=== PATIENT | female | born 1940 | race Two or more races ===

== ENCOUNTER 2017-11-30 22:53 | Inpatient (IN) | payer MEDICARE, OTHER ==
[2017-11-30 23:17] LABS: ABNORMAL IP MESSAGE 1; HEMATOCRIT 36.5 % (37.0-47.0); HEMOGLOBIN 11.5 g/dl (12.0-16.0); MEAN CORPUSCULAR HEMOGLOBIN 27.7 pg (29.0-33.0); MEAN CORPUSCULAR HGB CONC 31.5 g/dl (32.0-37.0); PLATELET COUNT 91 10^3/UL (140-415); RED BLOOD COUNT 4.15 10^6/ul (4.20-5.40); RED CELL DISTRIBUTION WIDTH 13.5 % (11.5-14.5)
[2017-11-30 23:17] LABS: WHITE BLOOD COUNT 9.6 10^3/ul (4.8-10.8)
[2017-11-30 23:20] LABS: POSITIVE DIFF @See below
[2017-11-30 23:21] LABS: ADD MAN DIFF? YES
[2017-11-30] MEDS: FUROSEMIDE 40 MG INJ IV (23:28)
[2017-11-30 23:34] LABS: ALANINE AMINOTRANSFERASE 77 IU/L (13-69); ALBUMIN 4.8 g/dl (3.3-4.9); ALBUMIN/GLOBULIN RATIO 1.41; ALKALINE PHOSPHATASE 93 IU/L (42-121); ANION GAP 20 (8-16); ASPARTATE AMINO TRANSFERASE 78 IU/L (15-46); BILIRUBIN,INDIRECT 0.2 mg/dl (0-1.1); BILIRUBIN,TOTAL 0.2 mg/dl (0.2-1.3); BLOOD UREA NITROGEN 20 mg/dl (7-20); CARBON DIOXIDE 18 mmol/L (21-31); CHLORIDE 99 mmol/L (97-110); CREATININE 1.61 mg/dl (0.44-1.00); GLUCOSE 240 mg/dl (70-220); POTASSIUM 5.2 mmol/L (3.5-5.1); SODIUM 132 mmol/L (135-144); TOTAL PROTEIN 8.2 g/dl (6.1-8.1)
[2017-11-30 23:35] LABS: INR 0.89; PROTIME 12.1 Sec (11.9-14.9); PT RATIO 0.9
[2017-11-30 23:36] LABS: PARTIAL THROMBOPLASTIN TIME 25.5 Sec (25.0-35.0)
[2017-11-30 23:45] LABS: B-TYPE NATRIURETIC PEPTIDE 1360 PG/ML (0-450)
[2017-11-30 23:50] LABS: BASOPHILS % 0.2 % (0.0-2.0); LYMPHOCYTES # 4.6 10^3/ul (0.8-2.9); LYMPHOCYTES % 48.4 % (15.0-51.0); MONOCYTE # 0.9 10^3/ul (0.3-0.9); MONOCYTES % 9.3 % (0.0-11.0); NEUTROPHILS % 41.3 % (39.0-77.0)
[2017-11-30 23:59] LABS: TROPONIN-I < 0.012 ng/ml (0.000-0.120)
[2017-12-01 00:35] LABS: AADO2 Arterial 446.8 mmHg (7.0-24.0); Allen Test ACCEPTAB; Arterial Base Excess -6.2 mmol/L (-3.0-3); Arterial Blood Gas Oxygen Sat 99.2 mmHG (95.0-100.0); Arterial COHb 0.3 % (0.0-3.0); Arterial Fraction of Oxyhgb 98.8 % (93.0-99.0); Arterial HCO3 18.7 mmol/L (22.0-26.0); Arterial MetHb 0.1 % (0.0-1.5); Arterial Total Hemglobin 11.3 g/dl (12.0-18.0); Arterial pCO2 34.8 mmhg (35-45); Blood Gas IEPAP 18/5; Blood Gas PS 13; MODE MASK - BIPAP; Site Right Radial
[2017-12-01] MEDS ORDERED: morphine 2 MG INJ IV (01:00)
[2017-12-01] MEDS ORDERED: NACL 0.9% 3 ML SYG IV (01:00)
[2017-12-01] MEDS ORDERED: NITROGLYCERIN (SL) 0.4 MG TAB SL (01:00)
[2017-12-01] MEDS: FUROSEMIDE 20 MG INJ IV (06:21)
[2017-12-01] MEDS: PANTOPRAZOLE (EC) 40 MG TAB PO (06:21)
[2017-12-01 07:13] LABS: ADD MAN DIFF? NO
[2017-12-01 07:14] LABS: WHITE BLOOD COUNT 5.8 10^3/ul (4.8-10.8)
[2017-12-01 07:14] LABS: ABNORMAL IP MESSAGE 1; HEMATOCRIT 29.1 % (37.0-47.0); HEMOGLOBIN 9.6 g/dl (12.0-16.0); LYMPHOCYTES # 0.9 10^3/ul (0.8-2.9); LYMPHOCYTES % 15.4 % (15.0-51.0); MEAN CORPUSCULAR HEMOGLOBIN 28.2 pg (29.0-33.0); MEAN CORPUSCULAR VOLUME 85.3 fl (82.0-101.0); MONOCYTE # 0.5 10^3/ul (0.3-0.9); MONOCYTES % 8.3 % (0.0-11.0); NEUTROPHIL # 4.3 10^3/ul (1.6-7.5); NEUTROPHILS % 75.3 % (39.0-77.0); RED BLOOD COUNT 3.41 10^6/ul (4.20-5.40); RED CELL DISTRIBUTION WIDTH 13.5 % (11.5-14.5)
[2017-12-01 07:22] LABS: PLATELET COUNT 52 10^3/UL (140-415); POSITIVE DIFF @See below
[2017-12-01 07:36] LABS: CHOL/HDL RATIO 3.7 RATIO; HDL CHOLESTEROL 44 mg/dl (33-92); LDL CHOLESTEROL,CALCULATED 98 mg/dl; TRIGLYCERIDES 104 mg/dl (0-149)
[2017-12-01 07:36] LABS: CHOLESTEROL 163 mg/dl (100-200)
[2017-12-01 07:40] LABS: CREATINE KINASE 70 IU/L (23-200)
[2017-12-01 07:43] LABS: ANION GAP 13 (8-16); BLOOD UREA NITROGEN 23 mg/dl (7-20); CALCIUM 8.6 mg/dl (8.4-10.2); CARBON DIOXIDE 23 mmol/L (21-31); CHLORIDE 100 mmol/L (97-110); CREATININE 1.38 mg/dl (0.44-1.00); GLUCOSE 94 mg/dl (70-220); MAGNESIUM 1.9 mg/dl (1.7-2.5); PHOSPHORUS 3.8 mg/dl (2.5-4.9); SODIUM 131 mmol/L (135-144)
[2017-12-01 07:48] LABS: CK INDEX 1.5; CK-MB 1.03 ng/ml (0.0-2.4); TROPONIN-I 0.015 ng/ml (0.000-0.120)
[2017-12-01] MEDS ORDERED: SPIRONOLACTONE 25 MG TAB PO (09:00)
[2017-12-01] MEDS ORDERED: FUROSEMIDE 20 MG TAB PO (09:00)
[2017-12-01] MEDS: ASPIRIN 81 MG TAB PO (09:38)
[2017-12-01] MEDS: LISINOPRIL 10 MG TAB PO ×2 (09:38→21:07)
[2017-12-01] MEDS: SENNA TAB PO (09:38)
[2017-12-01] MEDS: AMIODARONE 200 MG TAB PO (09:39)
[2017-12-01] MEDS: HEPARIN 5,000 UNIT/0.5 ML VIAL SC ×2 (09:53→21:10)
[2017-12-01 11:32] LABS: IRON 57 ug/dl (35-150)
[2017-12-01 11:41] LABS: % IRON SATURATION 17 % SAT (22-52); TOTAL IRON BINDING CAPACITY 333 ug/dl (241-421)
[2017-12-01 12:52] LABS: CREATINE KINASE 64 IU/L (23-200)
[2017-12-01 12:58] LABS: CK INDEX 1.3; CK-MB 0.84 ng/ml (0.0-2.4)
[2017-12-01 12:59] LABS: TROPONIN-I < 0.012 ng/ml (0.000-0.120)
[2017-12-01 13:57] LABS: ADD UMIC NO; UR ASCORBIC ACID NEGATIVE (NEGATIVE); UR BILIRUBIN (Dip) NEGATIVE (NEGATIVE); UR BLOOD (Dip) NEGATIVE (NEGATIVE); UR CLARITY CLEAR (CLEAR); UR COLOR STRAW (YELLOW); UR GLUCOSE (Dip) NEGATIVE (NEGATIVE); UR KETONES (Dip) NEGATIVE (NEGATIVE); UR LEUKOCYTE ESTERASE (Dip) NEGATIVE Leu/ul (NEGATIVE); UR NITRITE (Dip) NEGATIVE (NEGATIVE); UR SPECIFIC GRAVITY (Dip) 1.004 (1.003-1.030); UR TOTAL PROTEIN (Dip) NEGATIVE (NEGATIVE); UR UROBILINOGEN (Dip) NEGATIVE (NEGATIVE)
[2017-12-01 14:03] LABS: CREATININE,URINE RANDOM 28.94 mg/dl (20-320)
[2017-12-01 14:03] LABS: SODIUM,URINE RANDOM 63 mmol/L (30-90)
[2017-12-01] MEDS: FUROSEMIDE 40 MG INJ IV (18:40)
[2017-12-01] MEDS: ATORVASTATIN 40 MG TAB PO (21:06)
[2017-12-01] MEDS: PRIMIDONE 50 MG TAB PO (21:31)
[2017-12-02] MEDS: FUROSEMIDE 40 MG INJ IV ×2 (05:48→17:34)
[2017-12-02] MEDS: PANTOPRAZOLE (EC) 40 MG TAB PO (06:17)
[2017-12-02 07:37] LABS: ADD MAN DIFF? NO
[2017-12-02 07:41] LABS: ABNORMAL IP MESSAGE 1; HEMATOCRIT 29.6 % (37.0-47.0); HEMOGLOBIN 9.6 g/dl (12.0-16.0); LYMPHOCYTES # 1.1 10^3/ul (0.8-2.9); LYMPHOCYTES % 22.6 % (15.0-51.0); MEAN CORPUSCULAR HEMOGLOBIN 27.9 pg (29.0-33.0); MEAN CORPUSCULAR HGB CONC 32.4 g/dl (32.0-37.0); MEAN PLATELET VOLUME 14.7 fl (7.4-10.4); MONOCYTE # 0.5 10^3/ul (0.3-0.9); MONOCYTES % 10.3 % (0.0-11.0); NEUTROPHIL # 3.3 10^3/ul (1.6-7.5); NEUTROPHILS % 66.3 % (39.0-77.0); PLATELET COUNT 58 10^3/UL (140-415); RED BLOOD COUNT 3.44 10^6/ul (4.20-5.40); RED CELL DISTRIBUTION WIDTH 13.8 % (11.5-14.5)
[2017-12-02 07:42] LABS: POSITIVE DIFF @See below
[2017-12-02 08:11] LABS: PHOSPHORUS 3.2 mg/dl (2.5-4.9)
[2017-12-02 08:47] LABS: ALANINE AMINOTRANSFERASE 52 IU/L (13-69); ALBUMIN 3.9 g/dl (3.3-4.9); ALKALINE PHOSPHATASE 61 IU/L (42-121); ANION GAP 15 (8-16); ASPARTATE AMINO TRANSFERASE 35 IU/L (15-46); BILIRUBIN,INDIRECT 0.3 mg/dl (0-1.1); BILIRUBIN,TOTAL 0.3 mg/dl (0.2-1.3); BLOOD UREA NITROGEN 22 mg/dl (7-20); CALCIUM 9.1 mg/dl (8.4-10.2); CARBON DIOXIDE 25 mmol/L (21-31); CHLORIDE 100 mmol/L (97-110); CREATININE 1.47 mg/dl (0.44-1.00); GLUCOSE 85 mg/dl (70-220); POTASSIUM 4.8 mmol/L (3.5-5.1); SODIUM 135 mmol/L (135-144); TOTAL PROTEIN 6.9 g/dl (6.1-8.1)
[2017-12-02] MEDS: SENNA TAB PO (08:54)
[2017-12-02] MEDS: AMIODARONE 200 MG TAB PO (08:54)
[2017-12-02] MEDS: LISINOPRIL 10 MG TAB PO ×2 (08:55→20:32)
[2017-12-02] MEDS: ASPIRIN 81 MG TAB PO (08:55)
[2017-12-02] MEDS: HEPARIN 5,000 UNIT/0.5 ML VIAL SC ×2 (08:56→20:33)
[2017-12-02 15:01] LABS: CREATININE, RANDOM URINE 35 mg/dL (20-320); MICROALBUMIN <0.2 mg/dL; MICROALBUMIN/CREATININE RATIO NOTE (<30)
[2017-12-02] MEDS: morphine LIQ (10 MG/5 ML) CUP PO ×2 (17:48→21:26)
[2017-12-02] MEDS: ACETAMINOPHEN 325 MG TAB PO (19:45)
[2017-12-02] MEDS: ATORVASTATIN 40 MG TAB PO (20:31)
[2017-12-02] MEDS: PRIMIDONE 50 MG TAB PO (20:31)
[2017-12-02] MEDS: AL HYDROX/MG HYDROX/SIMETH 30 ML CUP PO (23:17)
[2017-12-03] MEDS: FUROSEMIDE 40 MG INJ IV (06:42)
[2017-12-03 07:13] LABS: ADD MAN DIFF? NO
[2017-12-03 07:19] LABS: WHITE BLOOD COUNT 4.8 10^3/ul (4.8-10.8)
[2017-12-03 07:19] LABS: ABNORMAL IP MESSAGE 1; HEMATOCRIT 29.1 % (37.0-47.0); HEMOGLOBIN 9.5 g/dl (12.0-16.0); LYMPHOCYTES % 20.1 % (15.0-51.0); MEAN CORPUSCULAR HGB CONC 32.6 g/dl (32.0-37.0); MEAN CORPUSCULAR VOLUME 85.8 fl (82.0-101.0); MONOCYTE # 0.5 10^3/ul (0.3-0.9); MONOCYTES % 10.3 % (0.0-11.0); NEUTROPHIL # 3.3 10^3/ul (1.6-7.5); NEUTROPHILS % 68.8 % (39.0-77.0); RED BLOOD COUNT 3.39 10^6/ul (4.20-5.40); RED CELL DISTRIBUTION WIDTH 13.9 % (11.5-14.5)
[2017-12-03] MEDS: PANTOPRAZOLE (EC) 40 MG TAB PO (07:30)
[2017-12-03 07:35] LABS: PLATELET COUNT 61 10^3/UL (140-415); POSITIVE DIFF @See below
[2017-12-03 07:55] LABS: ANION GAP 18 (8-16); BLOOD UREA NITROGEN 28 mg/dl (7-20); CALCIUM 9.1 mg/dl (8.4-10.2); CARBON DIOXIDE 26 mmol/L (21-31); CHLORIDE 94 mmol/L (97-110); CREATININE 1.74 mg/dl (0.44-1.00); GLUCOSE 93 mg/dl (70-220); MAGNESIUM 2.1 mg/dl (1.7-2.5); PHOSPHORUS 3.8 mg/dl (2.5-4.9); POTASSIUM 4.9 mmol/L (3.5-5.1); SODIUM 133 mmol/L (135-144)
[2017-12-03] MEDS: SENNA TAB PO (09:12)
[2017-12-03] MEDS: HEPARIN 5,000 UNIT/0.5 ML VIAL SC ×2 (09:12→20:28)
[2017-12-03] MEDS: ACETAMINOPHEN 325 MG TAB PO (09:12)
[2017-12-03] MEDS: ASPIRIN 81 MG TAB PO (09:12)
[2017-12-03] MEDS: LISINOPRIL 10 MG TAB PO ×2 (09:12→20:30)
[2017-12-03] MEDS: METOLAZONE 5 MG TAB PO (09:13)
[2017-12-03] MEDS: AMIODARONE 200 MG TAB PO (09:13)
[2017-12-03] MEDS: ONDANSETRON 4 MG INJ IV (09:21)
[2017-12-03] MEDS: ALBUTEROL/IPRATROPIUM (NEB) 3 ML AMP HHN ×2 (13:14→19:30)
[2017-12-03] MEDS: BUDESONIDE (NEB) 0.5MG/2ML AMP HHN ×2 (13:38→19:30)
[2017-12-03] MEDS: FUROSEMIDE 20 MG INJ IV (17:49)
[2017-12-03] MEDS: ATORVASTATIN 40 MG TAB PO (20:29)
[2017-12-03] MEDS: PRIMIDONE 50 MG TAB PO (20:29)
[2017-12-04] MEDS: FUROSEMIDE 20 MG INJ IV (05:56)
[2017-12-04] MEDS: HYDROCODONE/APAP (5/325) TAB PO ×2 (05:56→20:55)
[2017-12-04] MEDS: AL HYDROX/MG HYDROX/SIMETH 30 ML CUP PO (05:59)
[2017-12-04 07:03] LABS: ADD MAN DIFF? NO
[2017-12-04 07:20] LABS: ABNORMAL IP MESSAGE 1; BASOPHILS % 0.2 % (0.0-2.0); HEMOGLOBIN 9.4 g/dl (12.0-16.0); LYMPHOCYTES # 1.6 10^3/ul (0.8-2.9); LYMPHOCYTES % 33.4 % (15.0-51.0); MEAN CORPUSCULAR HEMOGLOBIN 27.7 pg (29.0-33.0); MEAN CORPUSCULAR HGB CONC 32.4 g/dl (32.0-37.0); MEAN CORPUSCULAR VOLUME 85.5 fl (82.0-101.0); MEAN PLATELET VOLUME 13.6 fl (7.4-10.4); MONOCYTE # 0.6 10^3/ul (0.3-0.9); MONOCYTES % 12.7 % (0.0-11.0); NEUTROPHIL # 2.5 10^3/ul (1.6-7.5); NEUTROPHILS % 53.1 % (39.0-77.0); PLATELET COUNT 62 10^3/UL (140-415); RED BLOOD COUNT 3.39 10^6/ul (4.20-5.40); RED CELL DISTRIBUTION WIDTH 13.9 % (11.5-14.5)
[2017-12-04 07:20] LABS: WHITE BLOOD COUNT 4.8 10^3/ul (4.8-10.8)
[2017-12-04 07:28] LABS: POSITIVE DIFF @See below
[2017-12-04] MEDS: PANTOPRAZOLE (EC) 40 MG TAB PO (07:53)
[2017-12-04 07:56] LABS: ANION GAP 22 (8-16); BLOOD UREA NITROGEN 35 mg/dl (7-20); CARBON DIOXIDE 24 mmol/L (21-31); CHLORIDE 90 mmol/L (97-110); CREATININE 2.22 mg/dl (0.44-1.00); GLUCOSE 89 mg/dl (70-220); MAGNESIUM 2.1 mg/dl (1.7-2.5); PHOSPHORUS 4.7 mg/dl (2.5-4.9); POTASSIUM 4.8 mmol/L (3.5-5.1); SODIUM 131 mmol/L (135-144)
[2017-12-04] MEDS: ALBUTEROL/IPRATROPIUM (NEB) 3 ML AMP HHN ×3 (08:00→21:21)
[2017-12-04] MEDS: ASPIRIN 81 MG TAB PO (08:49)
[2017-12-04] MEDS: SENNA TAB PO (08:49)
[2017-12-04] MEDS: LISINOPRIL 10 MG TAB PO ×2 (08:51→20:55)
[2017-12-04] MEDS: METOLAZONE 5 MG TAB PO (08:52)
[2017-12-04] MEDS: AMIODARONE 200 MG TAB PO (08:52)
[2017-12-04] MEDS: HEPARIN 5,000 UNIT/0.5 ML VIAL SC ×2 (08:58→20:58)
[2017-12-04] MEDS: BUDESONIDE (NEB) 0.5MG/2ML AMP HHN ×2 (09:00→21:24)
[2017-12-04] MEDS: PRIMIDONE 50 MG TAB PO (20:55)
[2017-12-04] MEDS: ATORVASTATIN 40 MG TAB PO (20:55)
[2017-12-05] MEDS: PANTOPRAZOLE (EC) 40 MG TAB PO (05:04)
[2017-12-05 06:50] LABS: ADD MAN DIFF? NO
[2017-12-05 06:52] LABS: WHITE BLOOD COUNT 4.3 10^3/ul (4.8-10.8)
[2017-12-05 06:52] LABS: ABNORMAL IP MESSAGE 1; HEMOGLOBIN 10.1 g/dl (12.0-16.0); LYMPHOCYTES % 22.7 % (15.0-51.0); MEAN CORPUSCULAR HEMOGLOBIN 28.3 pg (29.0-33.0); MEAN CORPUSCULAR HGB CONC 33.7 g/dl (32.0-37.0); MEAN PLATELET VOLUME 13.5 fl (7.4-10.4); MONOCYTE # 0.5 10^3/ul (0.3-0.9); MONOCYTES % 11.9 % (0.0-11.0); NEUTROPHIL # 2.8 10^3/ul (1.6-7.5); NEUTROPHILS % 64.7 % (39.0-77.0); PLATELET COUNT 69 10^3/UL (140-415); RED BLOOD COUNT 3.57 10^6/ul (4.20-5.40); RED CELL DISTRIBUTION WIDTH 13.7 % (11.5-14.5)
[2017-12-05 07:16] LABS: POSITIVE DIFF @See below
[2017-12-05 07:30] LABS: ANION GAP 19 (8-16); BLOOD UREA NITROGEN 31 mg/dl (7-20); CALCIUM 9.5 mg/dl (8.4-10.2); CARBON DIOXIDE 23 mmol/L (21-31); CHLORIDE 95 mmol/L (97-110); CREATININE 1.74 mg/dl (0.44-1.00); GLUCOSE 98 mg/dl (70-220); POTASSIUM 4.8 mmol/L (3.5-5.1); SODIUM 132 mmol/L (135-144)
[2017-12-05] MEDS: ALBUTEROL/IPRATROPIUM (NEB) 3 ML AMP HHN ×3 (08:00→20:17)
[2017-12-05] MEDS: BUDESONIDE (NEB) 0.5MG/2ML AMP HHN ×2 (08:20→20:17)
[2017-12-05] MEDS: AMIODARONE 200 MG TAB PO (08:26)
[2017-12-05] MEDS: LISINOPRIL 10 MG TAB PO ×2 (08:26→20:45)
[2017-12-05] MEDS: METOLAZONE 5 MG TAB PO (08:26)
[2017-12-05] MEDS: FUROSEMIDE 20 MG INJ IV (08:27)
[2017-12-05] MEDS: ASPIRIN 81 MG TAB PO (08:27)
[2017-12-05] MEDS: SENNA TAB PO (08:28)
[2017-12-05] MEDS: HEPARIN 5,000 UNIT/0.5 ML VIAL SC ×2 (08:28→20:45)
[2017-12-05] MEDS: LORAZEPAM 1 MG TAB PO ×2 (10:04→20:45)
[2017-12-05] MEDS: ATORVASTATIN 40 MG TAB PO (20:44)
[2017-12-05] MEDS: PRIMIDONE 50 MG TAB PO (20:44)
[2017-12-05] MEDS: ZOLPIDEM 5 MG TAB PO (20:45)
[2017-12-06] MEDS: PANTOPRAZOLE (EC) 40 MG TAB PO (06:28)
[2017-12-06] MEDS: BUDESONIDE (NEB) 0.5MG/2ML AMP HHN ×2 (08:01→20:17)
[2017-12-06] MEDS: ALBUTEROL/IPRATROPIUM (NEB) 3 ML AMP HHN ×3 (08:01→20:03)
[2017-12-06] MEDS: ASPIRIN 81 MG TAB PO (08:41)
[2017-12-06] MEDS: METOLAZONE 5 MG TAB PO (08:42)
[2017-12-06] MEDS: SENNA TAB PO (08:42)
[2017-12-06] MEDS: AMIODARONE 200 MG TAB PO (08:42)
[2017-12-06] MEDS: HEPARIN 5,000 UNIT/0.5 ML VIAL SC ×2 (08:45→21:22)
[2017-12-06] MEDS: FUROSEMIDE 20 MG TAB PO (08:52)
[2017-12-06 09:42] LABS: ANION GAP 18 (8-16); BLOOD UREA NITROGEN 37 mg/dl (7-20); CALCIUM 9.5 mg/dl (8.4-10.2); CARBON DIOXIDE 26 mmol/L (21-31); CHLORIDE 92 mmol/L (97-110); CREATININE 2.89 mg/dl (0.44-1.00); GLUCOSE 100 mg/dl (70-220); SODIUM 131 mmol/L (135-144)
[2017-12-06 09:49] LABS: POTASSIUM 5.2 mmol/L (3.5-5.1)
[2017-12-06] MEDS: SOD CHLORIDE 0.9% 1,000 ML IV (11:00)
[2017-12-06] MEDS: ATORVASTATIN 40 MG TAB PO (21:12)
[2017-12-06] MEDS: PRIMIDONE 50 MG TAB PO (21:17)
[2017-12-06] MEDS: LORAZEPAM 1 MG TAB PO (21:22)
[2017-12-06] MEDS ORDERED: hydrALAzine 20 MG INJ IV (22:00)
[2017-12-07] MEDS: SOD CHLORIDE 0.9% 1,000 ML IV ×2 (07:00→19:12)
[2017-12-07 07:17] LABS: ADD MAN DIFF? NO
[2017-12-07 07:32] LABS: ABNORMAL IP MESSAGE 1; BASOPHILS % 0.2 % (0.0-2.0); HEMATOCRIT 29.3 % (37.0-47.0); HEMOGLOBIN 9.6 g/dl (12.0-16.0); LYMPHOCYTES % 20.7 % (15.0-51.0); MEAN CORPUSCULAR HGB CONC 32.8 g/dl (32.0-37.0); MEAN CORPUSCULAR VOLUME 85.4 fl (82.0-101.0); MEAN PLATELET VOLUME 13.4 fl (7.4-10.4); MONOCYTE # 0.6 10^3/ul (0.3-0.9); MONOCYTES % 13.3 % (0.0-11.0); NEUTROPHILS % 64.3 % (39.0-77.0); RED BLOOD COUNT 3.43 10^6/ul (4.20-5.40); RED CELL DISTRIBUTION WIDTH 13.8 % (11.5-14.5)
[2017-12-07 07:32] LABS: WHITE BLOOD COUNT 4.7 10^3/ul (4.8-10.8)
[2017-12-07 07:40] LABS: POSITIVE DIFF @See below
[2017-12-07 07:41] LABS: PLATELET COUNT 60 10^3/UL (140-415)
[2017-12-07 07:51] LABS: ANION GAP 18 (8-16); BLOOD UREA NITROGEN 41 mg/dl (7-20); CALCIUM 9.3 mg/dl (8.4-10.2); CARBON DIOXIDE 26 mmol/L (21-31); CHLORIDE 92 mmol/L (97-110); CREATININE 2.37 mg/dl (0.44-1.00); GLUCOSE 87 mg/dl (70-220); MAGNESIUM 2.4 mg/dl (1.7-2.5); PHOSPHORUS 4.6 mg/dl (2.5-4.9); POTASSIUM 5.1 mmol/L (3.5-5.1); SODIUM 131 mmol/L (135-144)
[2017-12-07] MEDS: PANTOPRAZOLE (EC) 40 MG TAB PO (08:32)
[2017-12-07] MEDS: SENNA TAB PO (08:33)
[2017-12-07] MEDS: ASPIRIN 81 MG TAB PO (08:34)
[2017-12-07] MEDS: AMIODARONE 200 MG TAB PO (08:35)
[2017-12-07] MEDS: HEPARIN 5,000 UNIT/0.5 ML VIAL SC ×2 (08:38→21:17)
[2017-12-07] MEDS: BUDESONIDE (NEB) 0.5MG/2ML AMP HHN ×2 (09:00→21:32)
[2017-12-07] MEDS: ALBUTEROL/IPRATROPIUM (NEB) 3 ML AMP HHN ×3 (09:28→21:32)
[2017-12-07] MEDS: ACETAMINOPHEN 325 MG TAB PO (15:36)
[2017-12-07] MEDS: ATORVASTATIN 40 MG TAB PO (21:15)
[2017-12-07] MEDS: PRIMIDONE 50 MG TAB PO (21:15)
[2017-12-08] MEDS: ZOLPIDEM 5 MG TAB PO ×2 (01:05→23:52)
[2017-12-08] MEDS: ALBUTEROL/IPRATROPIUM (NEB) 3 ML AMP HHN ×4 (06:03→19:24)
[2017-12-08 07:24] LABS: ADD MAN DIFF? NO
[2017-12-08 07:26] LABS: WHITE BLOOD COUNT 4.6 10^3/ul (4.8-10.8)
[2017-12-08 07:26] LABS: ABNORMAL IP MESSAGE 1; HEMATOCRIT 26.8 % (37.0-47.0); HEMOGLOBIN 8.6 g/dl (12.0-16.0); LYMPHOCYTES # 1.1 10^3/ul (0.8-2.9); LYMPHOCYTES % 23.3 % (15.0-51.0); MEAN CORPUSCULAR HEMOGLOBIN 27.8 pg (29.0-33.0); MEAN CORPUSCULAR HGB CONC 32.1 g/dl (32.0-37.0); MEAN CORPUSCULAR VOLUME 86.7 fl (82.0-101.0); MEAN PLATELET VOLUME 14.6 fl (7.4-10.4); MONOCYTE # 0.7 10^3/ul (0.3-0.9); MONOCYTES % 14.4 % (0.0-11.0); NEUTROPHIL # 2.8 10^3/ul (1.6-7.5); NEUTROPHILS % 61.4 % (39.0-77.0); PLATELET COUNT 54 10^3/UL (140-415); RED BLOOD COUNT 3.09 10^6/ul (4.20-5.40); RED CELL DISTRIBUTION WIDTH 14.3 % (11.5-14.5)
[2017-12-08 07:29] LABS: POSITIVE DIFF @See below
[2017-12-08 07:50] LABS: ANION GAP 19 (8-16); BLOOD UREA NITROGEN 34 mg/dl (7-20); CALCIUM 8.9 mg/dl (8.4-10.2); CARBON DIOXIDE 21 mmol/L (21-31); CHLORIDE 100 mmol/L (97-110); CREATININE 1.78 mg/dl (0.44-1.00); GLUCOSE 90 mg/dl (70-220); MAGNESIUM 2.2 mg/dl (1.7-2.5); PHOSPHORUS 4.3 mg/dl (2.5-4.9); POTASSIUM 4.5 mmol/L (3.5-5.1); SODIUM 135 mmol/L (135-144)
[2017-12-08] MEDS: BUDESONIDE (NEB) 0.5MG/2ML AMP HHN ×2 (08:27→19:24)
[2017-12-08] MEDS: PANTOPRAZOLE (EC) 40 MG TAB PO (08:40)
[2017-12-08] MEDS: SENNA TAB PO (08:40)
[2017-12-08] MEDS: ASPIRIN 81 MG TAB PO (08:40)
[2017-12-08] MEDS: HEPARIN 5,000 UNIT/0.5 ML VIAL SC ×2 (08:41→21:19)
[2017-12-08] MEDS: AMIODARONE 200 MG TAB PO (08:46)
[2017-12-08] MEDS: ATORVASTATIN 40 MG TAB PO (21:17)
[2017-12-08] MEDS: PRIMIDONE 50 MG TAB PO (21:18)
[2017-12-08] MEDS: SOD CHLORIDE 0.9% 1,000 ML IV (23:00)
[2017-12-09] MEDS: SOD CHLORIDE 0.9% 1,000 ML IV (03:46)
[2017-12-09 06:13] LABS: ADD MAN DIFF? NO
[2017-12-09 06:25] LABS: ABNORMAL IP MESSAGE 1; HEMATOCRIT 26.4 % (37.0-47.0); HEMOGLOBIN 8.7 g/dl (12.0-16.0); LYMPHOCYTES # 1.1 10^3/ul (0.8-2.9); LYMPHOCYTES % 30.4 % (15.0-51.0); MEAN CORPUSCULAR HEMOGLOBIN 28.7 pg (29.0-33.0); MEAN CORPUSCULAR VOLUME 87.1 fl (82.0-101.0); MEAN PLATELET VOLUME 13.8 fl (7.4-10.4); MONOCYTE # 0.5 10^3/ul (0.3-0.9); MONOCYTES % 14.2 % (0.0-11.0); NEUTROPHIL # 1.9 10^3/ul (1.6-7.5); NEUTROPHILS % 54.5 % (39.0-77.0); PLATELET COUNT 60 10^3/UL (140-415); RED BLOOD COUNT 3.03 10^6/ul (4.20-5.40); RED CELL DISTRIBUTION WIDTH 14.3 % (11.5-14.5)
[2017-12-09 06:25] LABS: WHITE BLOOD COUNT 3.5 10^3/ul (4.8-10.8)
[2017-12-09 06:32] LABS: POSITIVE DIFF @See below
[2017-12-09] MEDS: PANTOPRAZOLE (EC) 40 MG TAB PO (06:52)
[2017-12-09 06:54] LABS: ANION GAP 17 (8-16); BLOOD UREA NITROGEN 26 mg/dl (7-20); CALCIUM 9.3 mg/dl (8.4-10.2); CARBON DIOXIDE 23 mmol/L (21-31); CHLORIDE 102 mmol/L (97-110); GLUCOSE 89 mg/dl (70-220); MAGNESIUM 1.9 mg/dl (1.7-2.5); PHOSPHORUS 4.1 mg/dl (2.5-4.9); POTASSIUM 4.5 mmol/L (3.5-5.1); SODIUM 137 mmol/L (135-144)
[2017-12-09] MEDS: ALBUTEROL/IPRATROPIUM (NEB) 3 ML AMP HHN (07:55)
[2017-12-09] MEDS: BUDESONIDE (NEB) 0.5MG/2ML AMP HHN (07:56)
[2017-12-09] MEDS: AMIODARONE 200 MG TAB PO (09:29)
[2017-12-09] MEDS: SENNA TAB PO (09:29)
[2017-12-09] MEDS: HEPARIN 5,000 UNIT/0.5 ML VIAL SC (09:30)
[2017-12-09] MEDS: ASPIRIN 81 MG TAB PO (09:44)
== END 2017-12-09 14:08 | disposition home or self-care (01) | DRG 291 ==
LOC: E/R 22:53 → MS4 12-01 00:44 → PP2 12-07 18:10
DX: I13.0 Hypertensive heart and chronic kidney disease with heart failure and stage 1 through stage 4 chronic kidney disease, or unspecified chronic kidney disease (principal); I50.23 Acute on chronic systolic (congestive) heart failure; J96.01 Acute respiratory failure with hypoxia; E87.1 Hypo-osmolality and hyponatremia; N17.9 Acute kidney failure, unspecified; D61.818 Other pancytopenia; N18.9 Chronic kidney disease, unspecified; I48.91 Unspecified atrial fibrillation; I42.9 Cardiomyopathy, unspecified; E78.5 Hyperlipidemia, unspecified; R73.03 Prediabetes; D64.9 Anemia, unspecified
CPT/HCPCS: 36415; 36600; 71045; 76775; 80048; 80053; 80061; 81003; 82043; 82550; 82553; 82803; 83036; 83540; 83735; 83880; 84100; 84155; 84300; 84443; 84484; 85025; 85610; 85730; 93005; 93306; 94640; 94660; 94664; 96374; 97110; 97116; 97161; 99217; 99291-25

== ENCOUNTER 2018-02-24 02:26 | Emergency (ER) | payer MEDICARE, OTHER ==
[2018-02-24] MEDS ORDERED: ASPIRIN 300 MG SUPP PR (02:52)
[2018-02-24] MEDS: EPINEPHrine 4 MG in DEXTROSE 5% 246 ML IV (03:19)
[2018-02-24] MEDS: SOD CHLORIDE 0.9% 1,000 ML IV (03:20)
[2018-02-24] MEDS ORDERED: EPINEPHrine 0.1 MG/ML SYG ×3 (03:31→07:00)
[2018-02-24 04:12] LABS: WHITE BLOOD COUNT 27.2 10^3/ul (4.8-10.8)
[2018-02-24 04:12] LABS: ABNORMAL IP MESSAGE 1; MEAN CORPUSCULAR HEMOGLOBIN 28.3 pg (29.0-33.0); MEAN CORPUSCULAR HGB CONC 29.1 g/dl (32.0-37.0); MEAN PLATELET VOLUME 11.5 fl (7.4-10.4); NUCLEATED RED BLOOD CELLS% 0.6 /100WBC (0.0-0.0); PLATELET COUNT 74 10^3/UL (140-415); RED BLOOD COUNT 2.37 10^6/ul (4.20-5.40)
[2018-02-24 04:18] LABS: ADD MAN DIFF? YES; HEMOGLOBIN 6.7 g/dl (12.0-16.0); POSITIVE DIFF @See below
[2018-02-24 04:30] LABS: AADO2 Arterial 596.9 mmHg (7.0-24.0); Arterial Base Excess -12.8 mmol/L (-3.0-3); Arterial COHb 0.3 % (0.0-3.0); Arterial Fraction of Oxyhgb 85.3 % (93.0-99.0); Arterial HCO3 15.2 mmol/L (22.0-26.0); Arterial MetHb 0.5 % (0.0-1.5); Arterial Total Hemglobin 8.2 g/dl (12.0-18.0); Arterial pCO2 44.3 mmhg (35-45); MODE VENT - AC; Site Right Brachial
[2018-02-24] MEDS ORDERED: EPINEPHrine 4 MG in DEXTROSE 5% 246 ML IV (04:30)
[2018-02-24 04:31] LABS: ALKALINE PHOSPHATASE 81 IU/L (42-121); ANION GAP 25 (8-16); BILIRUBIN,INDIRECT 0.2 mg/dl (0-1.1); BILIRUBIN,TOTAL 0.2 mg/dl (0.2-1.3); BLOOD UREA NITROGEN 10 mg/dl (7-20); CALCIUM 7.2 mg/dl (8.4-10.2); CARBON DIOXIDE 20 mmol/L (21-31); CHLORIDE 99 mmol/L (97-110); CREATININE 1.23 mg/dl (0.44-1.00); LIPASE 237 U/L (23-300); POTASSIUM 4.1 mmol/L (3.5-5.1); SODIUM 140 mmol/L (135-144)
[2018-02-24 04:42] LABS: TROPONIN-I 0.048 ng/ml (0.000-0.120)
[2018-02-24 04:44] LABS: GLUCOSE 557 mg/dl (70-220)
[2018-02-24] MEDS ORDERED: SOD CHLORIDE 0.9% 250 ML IV (05:06)
[2018-02-24 05:12] LABS: IMMEDIATE SPIN CROSSMATCH 1 1
[2018-02-24 05:17] LABS: ANISOCYTOSIS 2+ (0-0); BAND NEUTROPHILS #M 5.4 10^3/ul (0.0-0.6); BAND NEUTROPHILS % (M) 20 % (0-4); ERYTHROBLAST% (NRBC) (M) 1 % (0-0); GIANT THROMBO% (M) 1 % (0-0); LYMPHOCYTES #M 6.5 10^3/ul (0.8-2.9); LYMPHOCYTES % (M) 24 % (15-51); MICROCYTOSIS 2+ (0-0); PLATELET ESTIMATE DECREASED; POIKILOCYTOSIS 3+ (0-0); SEG NEUT #M 16.7 10^3/ul (1.6-7.5); SEGMENTED NEUTROPHILS (M) % 56 % (39-77); SMUDGE%M 1 % (0-0)
[2018-02-24 05:19] LABS: ALANINE AMINOTRANSFERASE 6697 IU/L (13-69); ASPARTATE AMINO TRANSFERASE 7084 IU/L (15-46)
[2018-02-24] MEDS ORDERED: EPINEPHrine 4 MG in SOD CHLORIDE 0.9% 246 ML IV (06:00)
[2018-02-24] MEDS ORDERED: NORepinephrine 8MG/250 ML (PMX 250 ML IV ×2 (06:00→07:30)
[2018-02-24] MEDS: NORepinephrine 8MG/250 ML (PMX 250 ML IV (06:07)
[2018-02-24] MEDS ORDERED: ATROPINE 1 MG/10 ML SYRINGE (07:00)
[2018-02-24] MEDS ORDERED: CA CHLORIDE 10% 10 ML SYRINGE (07:00)
[2018-02-24] MEDS ORDERED: NA BICARBONATE 8.4% 50 ML SYG (07:00)
[2018-02-24] MEDS ORDERED: DOPamine-D5W 1.6 MG/ML 250 ML (07:00)
[2018-02-24] MEDS ORDERED: DEXTROSE 50% 50 ML SYRINGE (07:00)
[2018-02-24] MEDS ORDERED: NALOXONE 2 MG SYG (07:00)
[2018-02-24 07:04] LABS: INR 3.52; PROTIME 36.4 Sec (11.9-14.9); PT RATIO 2.8
[2018-02-24 07:08] LABS: PARTIAL THROMBOPLASTIN TIME 129.5 Sec (25.0-35.0)
[2018-02-24] MEDS ORDERED: DEXTROSE 5%-0.45% NACL 1,000 ML IV (07:12)
[2018-02-24] MEDS ORDERED: IPRATROPIUM (HFA) 12.9 GM INHALER INH (07:30)
[2018-02-24] MEDS ORDERED: DEXTROSE 50% 50 ML SYRINGE IV ×2 (07:30)
[2018-02-24] MEDS ORDERED: MEPERIDINE 25 MG INJ IV ×2 (07:30)
[2018-02-24] MEDS ORDERED: ACCU-CHEK XX (07:30)
[2018-02-24] MEDS ORDERED: VASOPRESSIN 60 UNIT in DEXTROSE 5% 57 ML IV (07:30)
[2018-02-24] MEDS ORDERED: PHENYLephrine 40 MG in DEXTROSE 5% 496 ML IV (07:30)
[2018-02-24] MEDS ORDERED: ONDANSETRON 4 MG INJ IV (07:30)
[2018-02-24] MEDS ORDERED: ACETAMINOPHEN 650MG/20.3ML CUP PO (07:30)
[2018-02-24] MEDS ORDERED: ACETAMINOPHEN 650 MG SUPP PR (07:30)
[2018-02-24] MEDS ORDERED: ALBUTEROL HFA 8 GM INHALER INH (07:30)
[2018-02-24] MEDS ORDERED: INSULIN HUMAN REGULAR 100 UNIT in SOD CHLORIDE 0.9% 99 ML IV (07:30)
[2018-02-24] MEDS ORDERED: ARTIFICIAL TEARS 15 ML OPH BOTH EYES (12:00)
[2018-02-24] MEDS ORDERED: OCULAR LUBRICANT 3.5 GM OPH OINT BOTH EYES (12:00)
[2018-02-25] MEDS ORDERED: PANTOPRAZOLE 40 MG INJ IV (06:00)
[2018-02-25] MEDS ORDERED: ACETAMINOPHEN 650 MG SUPP PR (07:30)
[2018-02-25] MEDS ORDERED: ACETAMINOPHEN 650MG/20.3ML CUP PO (07:30)
== END 2018-02-24 12:17 | disposition expired ==
LOC: E/R 02:26
DX: I46.9 Cardiac arrest, cause unspecified (principal); R40.2112 Coma scale, eyes open, never, at arrival to emergency department; R40.2212 Coma scale, best verbal response, none, at arrival to emergency department; R40.2312 Coma scale, best motor response, none, at arrival to emergency department; I10 Essential (primary) hypertension; R07.9 Chest pain, unspecified
CPT/HCPCS: 32551; 36415; 36430; 36600; 71045; 80053; 82803; 83690; 84484; 85025; 85384; 85610; 85730; 86644; 86850; 86900; 86901; 86920; 92950; 93005; 94002; 96361; 96374; 96375; 99291-25